=== PATIENT | female | born 1990 | race Hispanic/Latino ===

== ENCOUNTER 2024-05-13 22:58 | Emergency (ER) | payer BC ==
[~2024-05-13] VITALS: Ht 160 cm; Wt 108.0 kg
[2024-05-13 23:00] VITALS: TEMP 98.1
--- NOTE | 2024-05-13 23:19 | ERN ---
ED Note History of Present Illness Stated Complaint: ABDOMINAL PAIN Chief Complaint: Abdominal Pain Time Seen by MD: 23:02 Dictation: Patient is a 33-year-old female morbid obesity who presented to the ER complaining of right groin pain radiating to the right lower quadrant pain, states the pain started earlier this morning around 8:00 a.m. it was associated with nausea. Patient denies fever, chills, no sick contacts. She denies diarrhea. She denies urinary symptoms. Allergies: Coded Allergies: No Known Drug Allergies (Unverified Allergy, Unknown, 05/13/24) Past Medical History Past Medical History: Anemia, Asthma Surgical History: Cholecystectomy, LMP: Mar 13, 2024 Review of System Dictation NEGATIVE EXCEPT PER HPI Constitutional: Negative for fever,chills, and weight loss Eyes: Negative for injury, pain,redness, and discharge ENT: Negative for injury,pain or swelling Cardiovascular: denies chest pain, palpitations, and edema Respiratory: Negative for shortness of breath, cough, and wheezing, Abdomen/GI: Right lower quadrant abdominal pain and nausea. Back: Right lower back pain. : Negative for injury, bleeding and discharge MS/Extremity: Negative for injury and deformity Skin: Negative for rash, and discoloration Neuro: Negative for headache, weakness, numbness, tingling, and seizure Psych: Negative for suicide ideation, homicidal ideation, and hallucinations Initial Vital Sign VS Vital Signs Date Time Temp Pulse Resp B/P (MAP) Pulse Ox O2 Delivery O2 Flow Rate FiO2 05/13/24 23:00 98.1 82 18 126/67 99 Room Air 0 05/14/24 00:06 21 Physical Exam Dictation General: awake, alert, NAD Head/Face: Normocephalic, atraumatic Eyes: PERRL, EOMI, vision at baseline ENT: oral cavity clear, TMs clear, no signs of infection Neck: Trachea midline, supple, no nuchal rigidity Cardiovascular: RRR, normal S1/S2, No MRGs, no JVD Respiratory: CTAB, no respiratory distress, No rales or wheezes Abdomen: Soft , no tender Skin: Warm, dry, normal turgor, no rash MS/Extremity: Pulses equal, no cyanosis, neurovascular intact, FROM Neuro: COAx4, GCS 15, strength 5/5, CN 2-12 intact, normal cerebellar exam, normal gait, Psych: Normal behavior, mood, and affect normal Results (Laboratory/Radiology) Laboratory/Radiology Laboratory Tests Test 05/13/24 23:09 White Blood Count 10.6 K/uL (4.8-10.8) Red Blood Count 4.71 MIL/uL (4.00-5.50) Hemoglobin 10.8 g/dL (12.0-16.0) L Hematocrit 34.5 % (36-48) L Mean Corpuscular Volume 73.2 fL (79-99) L Mean Corpuscular Hemoglobin 22.9 pg (27.0-33.0) L Mean Corpuscular Hemoglobin Concent 31.3 g/dL (32.0-36.0) L Red Cell Distribution Width 17.1 % (11.0-15.5) H Platelet Count 395 K/uL (130-400) Mean Platelet Volume 8.8 fL (7.5-10.5) Immature Granulocyte % (Auto) 0.4 % (0-1) Neutrophils (%) (Auto) 65.0 % (40.0-77.0) Lymphocytes (%) (Auto) 25.7 % (21.0-51.0) Monocytes (%) (Auto) 6.4 % (3.0-13.0) Eosinophils (%) (Auto) 1.9 % (0.0-8.0) Basophils (%) (Auto) 0.6 % (0.0-5.0) Neutrophils # (Auto) 6.9 K/uL (1.8-7.7) Lymphocytes # (Auto) 2.7 K/uL (1.0-4.8) Monocytes # (Auto) 0.7 K/uL (0.1-1.0) Eosinophils # (Auto) 0.20 K/uL (0.00-0.70) Basophils # (Auto) 0.06 K/uL (0.00-0.20) Absolute Immature Granulocyte (auto 0.04 K/uL (0-1) Nucleated Red Blood Cells 0.0 % (0.0-0.19) Red Blood Cell Morphology See comments Urine Color LIGHT-YELLOW (YELLOW) Urine Appearance CLEAR (CLEAR) Urine pH 5.5 (5.0-8.0) Urine Specific Mcallister 1.016 (1.001-1.031) Urine Protein NEGATIVE mg/dL (NEGATIVE) Urine Glucose (UA) NEGATIVE mg/dL (NEGATIVE) Urine Ketones NEGATIVE mg/dL (NEGATIVE) Urine Occult Blood MODERATE (NEGATIVE) H Urine Nitrate NEGATIVE (NEGATIVE) Urine Bilirubin NEGATIVE mg/dL (NEGATIVE) Urine Urobilinogen 0.2 mg/dL (0.2-1.0) Urine Leukocyte Esterase NEGATIVE Eusebio/uL Urine RBC 2-5 /HPF (0-1) H Urine WBC 2-5 /HPF (0-1) H Urine Squamous Epithelial Cells Rare /HPF (0-2) Urine Bacteria Rare /HPF (None Seen) Urine HCG, Qualitative NEGATIVE (NEGATIVE) Sodium Level 142 mmol/L (136-145) Potassium Level 3.6 mmol/L (3.5-5.1) Chloride Level 106 mmol/L (101-111) Carbon Dioxide Level 29 mmol/L (21-32) Blood Urea Nitrogen 9 mg/dL (7-18) Creatinine 0.8 mg/dL (0.5-1.0) Glomerular Filtration Rate Calc 101 mL/min (>90) Random Glucose 95 mg/dL (70-105) Total Calcium 8.8 mg/dL (8.5-10.1) ED Course ED Course Orders Procedure Category Date Status Time Basic Metabolic Panel LAB 05/13/24 Complete 23:13 Cbc With Differential LAB 05/13/24 Complete 23:13 ,Urine Test LAB 05/13/24 Complete 23:13 Urinalysis Profile LAB 05/13/24 Complete 23:13 Ct Abdomen/Pelvis W/O CT 05/14/24 Resulted Contrast 00:09 Morphine 2mg Syg PHA 05/14/24 Complete (Morphine 2mg Syg) 00:30 Current Medications Medications (Trade) Dose Ordered Sig/Jagdish Route PRN Reason Start Time Stop Time Status Last Admin Dose Admin Morphine Sulfate (morPHINE 2MG SYG) 2 mg ONCE ONCE IVP 05/14/24 00:30 05/14/24 00:31 DC 05/14/24 00:25 Vital Signs Date Time Temp Pulse Resp B/P (MAP) Pulse Ox O2 Delivery O2 Flow Rate FiO2 05/14/24 00:06 74 18 128/76 100 Room Air* 0 21 05/13/24 23:00 98.1 82 18 126/67 99 Room Air 0 Medical Decision Making MDM 33-year-old female with right lower back pain, right groin pain, right lower quadrant abdominal pain associated with nausea. Ordered CBC, BNP, UA, test Possible patient's symptoms related to UTI/pyelonephritis,/appendicitis. We started with laboratory workup and possible CT of abdomen/pelvis to be ordered also. Laboratory workup was unremarkable UA was positive for blood I will order a CT of abdomen/pelvis in order to rule out early appendicitis, nephrolithiasis. FINDINGS: No pleural effusion is seen bilaterally. There is no evidence of parenchymal disease or pulmonary nodule of the visualized lower lungs. Degenerative changes of the thoracolumbar spine are present. The heart is not enlarged. Liver is enlarged with fatty changes measuring 18 cm. Gallbladder has been removed. Liver, spleen, adrenal glands and pancreas are unremarkable. There is no evidence of hydronephrosis bilaterally. No evidence of renal stone is seen. Fecal material is seen in the colon. There are normal size retroperitoneal and mesenteric lymph nodes. No ascites is seen. No CT evidence of acute appendicitis is seen. Clinical correlation is recommended. Pelvic sidewalls are symmetric bilaterally. Bladder is poorly distended. IMPRESSION: 1. No CT evidence of acute appendicitis is seen. Fecal material in the colon. No ascites. No hydronephrosis. According to results patient is negative for nephrolithiasis, appendicitis. Patient will be discharged home with a recommended to follow up with her primary care physician. Pain medical history p.r.n. he will be provided. DX & DISP Disposition: Discharge Departure Impression: Primary Impression: Abdominal pain Additional Impression: Muscle ache Condition: Stable Scripts Ibuprofen (Ibuprofen) 400 Mg Tablet 1 TAB PO Q6HPRN PRN for pain or fever for 5 Days, #20 TAB 0 Refills Prov: ODETTE ALLRED MD 05/14/24 Additional Instructions: RETURN TO ER FOR ANY ACUTE OR WORSENING SYMPTOMS. FOLLOW-UP IN 1-2 DAYS WITH PRIMARY PROVIDER FOR RECHECK OF TODAY'S SYMPTOMS. ODETTE ALLRED MD May 13, 2024 23:19
[2024-05-13 23:22] LABS: BASOPHILS # (AUTO) 0.06 K/uL (0.00-0.20); BASOPHILS % (AUTO) 0.6 % (0.0-5.0); EOSINOPHILS % (AUTO) 1.9 % (0.0-8.0); HEMATOCRIT 34.5 % (36-48); IMMATURE GRANULOCYTE ABSOLUTE 0.04 K/uL (0-1); LYMPHOCYTES # (AUTO) 2.7 K/uL (1.0-4.8); LYMPHOCYTES % (AUTO) 25.7 % (21.0-51.0); MEAN CORPUSCULAR HEMOGLOBIN 22.9 pg (27.0-33.0); MEAN CORPUSCULAR HGB CONC 31.3 g/dL (32.0-36.0); MEAN CORPUSCULAR VOLUME 73.2 fL (79-99); MONOCYTES # (AUTO) 0.7 K/uL (0.1-1.0); MONOCYTES % (AUTO) 6.4 % (3.0-13.0); NEUTROPHILS # (AUTO) 6.9 K/uL (1.8-7.7); PLATELET COUNT (AUTO) 395 K/uL (130-400); RED BLOOD CELL COUNT(AUTO) 4.71 MIL/uL (4.00-5.50); RED CELL DISTRIBUTION WIDTH 17.1 % (11.0-15.5); WHITE BLOOD COUNT (AUTO) 10.6 K/uL (4.8-10.8)
[2024-05-13 23:37] LABS: APPEARANCE,URINE CLEAR (CLEAR); BILIRUBIN,URINE NEGATIVE (NEGATIVE); COLOR,URINE LIGHT-YELLOW (YELLOW); GLUCOSE, URINE (UA) NEGATIVE (NEGATIVE); KETONES,URINE NEGATIVE (NEGATIVE); LEUKOCYTE ESTERASE ,URINE NEGATIVE Leu/uL (NEGATIVE); NITRATE,URINE NEGATIVE (NEGATIVE); OCCULT BLOOD,URINE MODERATE (NEGATIVE); PH,URINE 5.5 (5.0-8.0); PROTEIN,URINE NEGATIVE (NEGATIVE); UROBILINOGEN,URINE 0.2 mg/dL (0.2-1.0)
[2024-05-13 23:38] LABS: CREATININE 0.8 mg/dL (0.5-1.0); POTASSIUM 3.6 mmol/L (3.5-5.1)
[2024-05-13 23:41] LABS: ADD UA MICROSCOPIC YES
[2024-05-13 23:43] LABS: BACTERIA,URINE Rare /HPF (None Seen); MUCUS,URINE Rare LPF (None Seen); SQUAMOUS EPITHELIAL CELL,UR Rare /HPF (0-2)
[2024-05-14] MEDS: morPHINE 2 MG SYG IVP ONE (00:25)
[2024-05-14 01:00] VITALS: BP 109/64; PULSE 92; RESP 18; O2SAT 99
--- NOTE | 2024-05-14 01:01 | HMCIMG ---
CT ABDOMEN/PELVIS W/O CONTRAST HISTORY: Abdominal pain COMPARISON: None TECHNIQUE: Multiple sequential axial images of the abdomen and pelvis were obtained from the dome of the diaphragm through symphysis pubis. Patient was not given contrast through intravenous route. Oral contrast was not given. FINDINGS: No pleural effusion is seen bilaterally. There is no evidence of parenchymal disease or pulmonary nodule of the visualized lower lungs. Degenerative changes of the thoracolumbar spine are present. The heart is not enlarged. Liver is enlarged with fatty changes measuring 18 cm. Gallbladder has been removed. Liver, spleen, adrenal glands and pancreas are unremarkable. There is no evidence of hydronephrosis bilaterally. No evidence of renal stone is seen. Fecal material is seen in the colon. There are normal size retroperitoneal and mesenteric lymph nodes. No ascites is seen. No CT evidence of acute appendicitis is seen. Clinical correlation is recommended. Pelvic sidewalls are symmetric bilaterally. Bladder is poorly distended. IMPRESSION: 1. No CT evidence of acute appendicitis is seen. Fecal material in the colon. No ascites. No hydronephrosis. CT was performed with one or more following dose reduction techniques: automated exposure control, adjustment of the mA and kv according to patient's size, or use of a iterative reconstruction technique.
[2024-05-14] MEDS ORDERED: IBUP-2076 PO (01:33)
[2024-05-16] MEDS ORDERED: DICY20TA2 PO (18:35)
== END 2024-05-14 01:46 | disposition home or self-care (01) ==
LOC: EDH 22:58
DX: R10.31 Right lower quadrant pain (principal); J45.909 Unspecified asthma, uncomplicated; Z90.49 Acquired absence of other specified parts of digestive tract
CPT/HCPCS: 99284; 80048; 85025; 81001; 81025; 36415; 74176; 96374; J2270

== ENCOUNTER 2024-08-10 11:12 | Emergency (ER) | payer BC, MEDICAID ==
[~2024-08-10] VITALS: Ht 160 cm; Wt 111.6 kg
[~2024-08-10 11:12] MED LIST: DICY20TA2 PO; IBUP-2076 PO
--- NOTE | 2024-08-10 12:15 | ERN ---
ED Note History of Present Illness Stated Complaint: FEVER, SORE THROAT Chief Complaint: Sore Throat Time Seen by MD: 11:15 Dictation: 33-year-old female presents to the ED for evaluation of sore throat onset three days ago. Patient reports fever and SOB, but denies any chest pain or other associated symptoms at this time. Patient states she wanted to get checked up because last year around this time she was diagnosed with pneumonia. Allergies: Coded Allergies: No Known Drug Allergies (Unverified Allergy, Unknown, 05/13/24) Home Meds Active Scripts Dicyclomine HCl (Bentyl) 20 Mg Tab, 20 MG PO Q6HPRN PRN for ABDOMINAL PAIN, #20 TAB Prov:NELI MA NP 05/16/24 Ibuprofen (Ibuprofen) 400 Mg Tablet, 1 TAB PO Q6HPRN PRN for pain or fever for 5 Days, #20 TAB 0 Refills Prov:ODETTE ALLRED MD 05/14/24 Past Medical History Past Medical History: No Pertinent History Surgical History: Cholecystectomy History: Not Applicable : 7 Para: 5 Aborts: 2 Review of System Dictation Constitutional: Negative for fever,chills, and weight loss Eyes: Negative for injury, pain,redness, and discharge ENT: Positive for sore throat Negative for injury or swelling Cardiovascular: Negative for chest pain, palpitations, and edema Respiratory: Positive for shortness of breath negative for cough, and wheezing, Abdomen/GI: Negative for abdominal pain, nausea, vomiting, diarrhea, and constipation Back: Negative for injury and pain : Negative for injury, bleeding and discharge MS/Extremity: Negative for injury and deformity Skin: Negative for rash, and discoloration Neuro: Negative for headache, weakness, numbness, tingling, and seizure Psych: Negative for suicide ideation, homicidal ideation, and hallucinations Initial Vital Sign VS Vital Signs Date Time Temp Pulse Resp B/P (MAP) Pulse Ox O2 Delivery O2 Flow Rate FiO2 08/10/24 11:15 97.7 74 18 127/71 97 Room Air 08/10/24 13:13 0 21 Physical Exam Dictation General: awake, alert, NAD Head/Face: Normocephalic, atraumatic Eyes: PERRL, EOMI, vision at baseline ENT: oral cavity clear, TMs clear, no signs of infection Neck: Trachea midline, supple, no nuchal rigidity Cardiovascular: RRR, normal S1/S2, No MRGs, no JVD Respiratory: CTAB, no respiratory distress, No rales or wheezes Abdomen: Soft, non-tender, non-distended, normal bowel sounds, no guarding or rebound. Skin: Warm, dry, normal turgor, no rash MS/Extremity: Pulses equal, no cyanosis, neurovascular intact, FROM Neuro: COAx4, GCS 15, strength 5/5, CN 2-12 intact, normal cerebellar exam, normal gait, Psych: Normal behavior, mood, and affect normal Results (Laboratory/Radiology) Laboratory/Radiology Laboratory Tests Test 08/10/24 13:12 Influenza Type A Antigen Negative For Type A Influenza Type B Antigen Negative For Type B SARS-CoV-2 Antigen (Rapid) PRESUMPTIVE NEGATIVE Group A Streptococcus Rapid negative (NEGATIVE) Labs Reviewed?: Yes ED Course ED Course Orders Procedure Category Date Status Time Covid19 (Sars Antigen LAB 08/10/24 Complete Rapid) 11:38 Influenza Type A & B, LAB 08/10/24 Complete Rapid 11:38 Rapid (Group A Strep) LAB 08/10/24 Complete 11:38 Chest 1vw RAD 08/10/24 Resulted 11:59 Vital Signs Date Time Temp Pulse Resp B/P (MAP) Pulse Ox O2 Delivery O2 Flow Rate FiO2 08/10/24 13:13 98.8 78 20 132/56 98 Room Air* 0 21 08/10/24 11:15 97.7 74 18 127/71 97 Room Air Medical Decision Making MDM MDM: Differential diagnosis: Strep, viral syndrome Risk of complication and/or morbidity or mortality of patient management: None Medications-Per medication reconciliation Need for hospitalization: Patient does not meet criteria for hospitalization. Need for emergency major/minor surgery: No There are no social concerns with this patient. Prescription drug management Prescriptions will include symptomatic care I independently interpreted the test that were performed, results were reviewed by me and considered findings on radiology if ordered. DX & DISP Disposition: AMA Departure Impression: Primary Impression: Left against medical advice Additional Impression: Viral syndrome Condition: Against Medical Advice Referrals: SELF,REFERRAL (PCP) PAUL WALKER MD Aug 10, 2024 12:15
[2024-08-10 13:13] VITALS: BP 132/56; PULSE 78; RESP 20; TEMP 98.8; O2SAT 98
--- NOTE | 2024-08-10 13:13 | NUR ---
ASSUMED CARE AT THIS TIME
--- NOTE | 2024-08-10 13:25 | HMCIMG ---
INDICATION: cough, SOB TECHNIQUE: CHEST 1VW COMPARISON: None FINDINGS AND IMPRESSION: Prominent bilateral interstitial markings which may represent bronchitis or vascular congestion in the proper clinical setting. Cardiac silhouette is within normal limits. Mild degenerative changes of the spine. The visualized upper abdomen appears unremarkable.
[2024-08-10 13:38] LABS: RAPID GROUP A STREP negative (NEGATIVE)
[2024-08-10 13:43] LABS: INFLUENZA TYPE A Negative For Type A (NEGATIVE); INFLUENZA TYPE B Negative For Type B (NEGATIVE)
--- NOTE | 2024-08-10 14:15 | NUR ---
PATIENT REQUEST TO LEAVE AMA AT THIS TIME. PATIENT IS ALERT AND ORIENTED TO PERSON, PLACE, TIME, AND EVENT. PATIENT REPORTS THAT SHE UNDERSTANDS HER CONDITION AND THE RISK ASSOCIATED WITH LEAVING AMA, INCLUDING WITH BUT NOT LIMITED TO PERAMANENT DISABILITY OR AND HAD THE OPPORTUNITY TO ASK QUESTIONS ABOUT THE MEDICAL CONDITION. THE PATIENT HAS BEEN INFORMED TO SEEK MEDICAL SERVICES IN EVENT OF AN EMERGENCY. PATIENT VERBALIZED UNDERSTANDING OF ABOVE STATEMENTS. PATIENT LEFT BEFORE AMA FORM COULD BE SIGNED.
[2024-08-10 14:20] LABS: COVID19 (SARS ANTIGEN RAPID) PRESUMPTIVE NEGATIVE (NEGATIVE)
== END 2024-08-10 14:20 | disposition left against medical advice (07) ==
LOC: EDH 11:12
DX: B34.9 Viral infection, unspecified (principal); Z20.822 Contact with and (suspected) exposure to COVID-19; Z79.899 Other long term (current) drug therapy; Z90.49 Acquired absence of other specified parts of digestive tract
CPT/HCPCS: 71045; 87426; 87804; 87880; 99283

== ENCOUNTER 2024-10-21 01:12 | Emergency (ER) | payer BC, MEDICAID ==
[~2024-10-21] VITALS: Ht 160 cm; Wt 117.9 kg
[2024-10-21] MEDS: LACTATED RINGERS 1000ML IV STA (01:36)
[2024-10-21 01:41] LABS: BASOPHILS # (AUTO) 0.05 K/uL (0.00-0.20); BASOPHILS % (AUTO) 0.6 % (0.0-5.0); EOSINOPHILS # (AUTO) 0.22 K/uL (0.00-0.70); EOSINOPHILS % (AUTO) 2.5 % (0.0-8.0); HEMATOCRIT 36.5 % (36-48); IMMATURE GRANULOCYTE ABSOLUTE 0.05 K/uL (0-1); LYMPHOCYTES # (AUTO) 2.6 K/uL (1.0-4.8); MEAN CORPUSCULAR HEMOGLOBIN 25.7 pg (27.0-33.0); MEAN CORPUSCULAR HGB CONC 31.5 g/dL (32.0-36.0); MEAN CORPUSCULAR VOLUME 81.5 fL (79-99); MONOCYTES # (AUTO) 0.6 K/uL (0.1-1.0); MONOCYTES % (AUTO) 6.6 % (3.0-13.0); NEUTROPHILS # (AUTO) 5.3 K/uL (1.8-7.7); NEUTROPHILS % (AUTO) 59.7 % (40.0-77.0); PLATELET COUNT (AUTO) 341 K/uL (130-400); RED BLOOD CELL COUNT(AUTO) 4.48 MIL/uL (4.00-5.50); RED CELL DISTRIBUTION WIDTH 15.1 % (11.0-15.5); WHITE BLOOD COUNT (AUTO) 8.8 K/uL (4.8-10.8)
[2024-10-21 01:48] LABS: CREATININE 0.6 mg/dL (0.5-1.0); POTASSIUM 3.8 mmol/L (3.5-5.1)
[2024-10-21 01:56] LABS: HCG,QUALITATIVE URINE NEGATIVE (NEGATIVE)
[2024-10-21 02:03] LABS: APPEARANCE,URINE TURBID (CLEAR); BILIRUBIN,URINE NEGATIVE (NEGATIVE); COLOR,URINE RED (YELLOW); GLUCOSE, URINE (UA) NEGATIVE (NEGATIVE); KETONES,URINE 5 mg/dL (NEGATIVE); LEUKOCYTE ESTERASE ,URINE 75 Leu/uL (NEGATIVE); MUCUS,URINE RARE LPF (None Seen); NITRATE,URINE NEGATIVE (NEGATIVE); OCCULT BLOOD,URINE LARGE (NEGATIVE); PH,URINE 5.5 (5.0-8.0); PROTEIN,URINE 50 mg/dL (NEGATIVE); RBC,URINE TNTC /HPF (0-1); SQUAMOUS EPITHELIAL CELL,UR FEW /HPF (0-2); UROBILINOGEN,URINE 0.2 mg/dL (0.2-1.0)
--- NOTE | 2024-10-21 02:16 | ERN ---
General Chief Complaint: Vaginal Bleeding Stated Complaint: C/O VAGINAL BLEEDING; HOME (+) 2 WKS AGO Time Seen by MD: 01:19 History of Present Illness Initial Comments Patient is a 33-year-old female who is six para five all by who comes in because of a very large clot and a large amount of blood in her urine associated with this . Her estimate of is 8-10 weeks. She comes in for evaluation because she has never had clots and bleeding with her earlier pregnancies. Allergies: Coded Allergies: No Known Drug Allergies (Unverified Allergy, Unknown, 05/13/24) Home Meds Active Scripts Dicyclomine HCl (Bentyl) 20 Mg Tab, 20 MG PO Q6HPRN PRN for ABDOMINAL PAIN, #20 TAB Prov:NELI MA NP 05/16/24 Ibuprofen (Ibuprofen) 400 Mg Tablet, 1 TAB PO Q6HPRN PRN for pain or fever for 5 Days, #20 TAB 0 Refills Prov:ODETTE ALLRED MD 05/14/24 Past Medical History Past Medical History: No Pertinent History Past Surgical History: Cholecystectomy, Female( History) History: Not Applicable : 7 Para: 5 Aborts: 2 Constitutional: (-) chills, (-) diaphoresis, (-) fever, (-) malaise, (-) weakness, (-) other documentation EENTM: (-) eye pain, (-) blurred vision, (-) tearing, (-) double vision, (-) ear pain, (-) ear discharge, (-) nose pain, (-) nose congestion, (-) throat pain, (-) Throat swelling, (-) mouth pain, (-) tooth pain, (-) mouth swelling, (-) other documentation Respiratory: (-) cough, (-) orthopnea, (-) short of breath, (-) stridor, (-) wheezing, (-) other documentation Gastrointestinal/Abdominal: (-) nausea, (-) vomiting, (-) diarrhea, (-) abdominal pain, (-) abdominal distention, (-) constipation, (-) rectal bleeding, (-) dark stool/melena, (-) other documentation Genitourinary: (+) vaginal bleeding, (+) hematuria Musculoskeletal: (-) Neck pain, (-) back pain, (-) Flank Pain, (-) joint pain, (-) joint swelling, (-) muscle pain, (-) muscle stiffness, (-) gout, (-) other documentation Skin: (-) laceration, (-) contusion, (-) abrasion, (-) abscess, (-) rash, (-) change in color, (-) change in hair, (-) change in nails, (-) diaphoresis, (-) dryness, (-) other documentation Physical Exam General Appearance: (+) no apparent distress Orientation: (+) alert Head/Face Trauma: No Eye: bilateral eye normal inspection, bilateral eye PERRL, bilateral eye EOMI Ear, Nose, Throat: (+) hearing grossly normal, (+) normal ENT inspection Neck: (+) normal inspection, (+) supple Respiratory: (+) chest non-tender, (+) lungs clear, (+) well ventilated Heart: (+) regular, (+) no gallop Vascular: (+) no edema, (+) normal peripheral pulse Gastrointestinal: (+) soft, (+) non-tender Results Laboratory and Microbiology Lab and Micro Result Laboratory Tests Test 10/21/24 01:35 10/21/24 01:40 White Blood Count 8.8 K/uL (4.8-10.8) Red Blood Count 4.48 MIL/uL (4.00-5.50) Hemoglobin 11.5 g/dL (12.0-16.0) L Hematocrit 36.5 % (36-48) Mean Corpuscular Volume 81.5 fL (79-99) Mean Corpuscular Hemoglobin 25.7 pg (27.0-33.0) L Mean Corpuscular Hemoglobin Concent 31.5 g/dL (32.0-36.0) L Red Cell Distribution Width 15.1 % (11.0-15.5) Platelet Count 341 K/uL (130-400) Mean Platelet Volume 9.3 fL (7.5-10.5) Immature Granulocyte % (Auto) 0.6 % (0-1) Neutrophils (%) (Auto) 59.7 % (40.0-77.0) Lymphocytes (%) (Auto) 30.0 % (21.0-51.0) Monocytes (%) (Auto) 6.6 % (3.0-13.0) Eosinophils (%) (Auto) 2.5 % (0.0-8.0) Basophils (%) (Auto) 0.6 % (0.0-5.0) Neutrophils # (Auto) 5.3 K/uL (1.8-7.7) Lymphocytes # (Auto) 2.6 K/uL (1.0-4.8) Monocytes # (Auto) 0.6 K/uL (0.1-1.0) Eosinophils # (Auto) 0.22 K/uL (0.00-0.70) Basophils # (Auto) 0.05 K/uL (0.00-0.20) Absolute Immature Granulocyte (auto 0.05 K/uL (0-1) Nucleated Red Blood Cells 0.0 % (0.0-0.19) Sodium Level 143 mmol/L (136-145) Potassium Level 3.8 mmol/L (3.5-5.1) Chloride Level 108 mmol/L (101-111) Carbon Dioxide Level 25 mmol/L (21-32) Blood Urea Nitrogen 10 mg/dL (7-18) Creatinine 0.6 mg/dL (0.5-1.0) Glomerular Filtration Rate Calc 123 mL/min (>90) Random Glucose 107 mg/dL (70-105) H Total Calcium 8.2 mg/dL (8.5-10.1) L Urine Color RED (YELLOW) Urine Appearance TURBID (CLEAR) Urine pH 5.5 (5.0-8.0) Urine Specific Lynn 1.030 (1.001-1.031) Urine Protein 50 mg/dL (NEGATIVE) H Urine Glucose (UA) NEGATIVE mg/dL (NEGATIVE) Urine Ketones 5 mg/dL (NEGATIVE) H Urine Occult Blood LARGE (NEGATIVE) H Urine Nitrate NEGATIVE (NEGATIVE) Urine Bilirubin NEGATIVE mg/dL (NEGATIVE) Urine Urobilinogen 0.2 mg/dL (0.2-1.0) Urine Leukocyte Esterase 75 Eusebio/uL (NEGATIVE) H Urine RBC TNTC /HPF (0-1) H Urine WBC 11-25 /HPF (0-1) H Urine Squamous Epithelial Cells FEW /HPF (0-2) Urine Bacteria None /HPF (None Seen) Urine HCG, Qualitative NEGATIVE (NEGATIVE) MDM I will order a CBC a UA and ultrasound. Patient is refusing transvaginal ultrasound. I explained the difference between transvaginal versus transabdominal and the advantages of one over the other. Given the young stage of a transvaginal would provide more information. However patient is still would prefer a transabdominal rather than a transvaginal ultrasound. Patient's laboratory studies have come back with a normal CBC a normal chemistry panel and a negative urine test. The urine shows also leukocyte esterase activity and large amounts of blood. The patient has a UTI. I will discharge her on Keflex. ED Course Orders Procedure Category Date Status Time Cbc With Differential LAB 10/21/24 Complete 01:30 Basic Metabolic Panel LAB 10/21/24 Complete 01:30 ,Urine Test LAB 10/21/24 Complete 01:30 Lactated Ringers PHA 10/21/24 Complete 1000ml (Lactated 01:30 Urinalysis LAB 10/21/24 Complete W/Microscopic 01:40 Culture Urine JORDANA 10/21/24 In Process 02:03 Us Ob <14 Weeks US 10/21/24 Taken 01:30 Current Medications Medications (Trade) Dose Ordered Sig/Jagdish Route PRN Reason Start Time Stop Time Status Last Admin Dose Admin Lactated Ringer's (Lactated Ringers 1000ml) 1,000 ml BOLUS STAT IV 10/21/24 01:30 10/21/24 01:33 DC 10/21/24 01:36 Vital Signs Date Time Temp Pulse Resp B/P (MAP) Pulse Ox O2 Delivery O2 Flow Rate FiO2 10/21/24 01:48 98.8 88 18 125/65 98 Room Air* 0 21 10/21/24 01:14 98.2 80 20 131/62 99 Room Air DX & DISP Disposition: Discharge Departure Impression: Primary Impression: Cystitis, acute hemorrhagic Condition: Stable Scripts Cephalexin Monohydrate (Keflex) 500 Mg Cap 500 MG PO QID for 7 Days, #28 CAP Prov: JESSICA DENSON MD 10/21/24 Additional Instructions: You have a urinary tract infection. That is causing the blood in your urine. By ultrasound and our urine test you are not . Please return to the emergency room if you have high fevers decreased blood pressure and increased abdominal pain as if the urinary tract infection was not responding to the antibiotics. Referrals: SELF,REFERRAL (PCP) JESSICA DENSON MD October 21, 2024 02:16
[2024-10-21] MEDS ORDERED: CEPH500B PO (03:10)
[2024-10-21 03:22] VITALS: BP 115/60; PULSE 80; RESP 18; TEMP 98.5; O2SAT 99
--- NOTE | 2024-10-21 09:20 | HMCIMG ---
US OB <14 WEEKS HISTORY: Bleeding COMPARISON: None TECHNIQUE: Obstetrical ultrasound study was performed. FINDINGS: The uterus measures 9.5 x 4 x 5.5 centimeter. Right ovary measures 3.1 x 1.6 x 2.5 centimeter. Left ovary measures 2.8 x 1.7 x 1.6 centimeter. No evidence of intrauterine gestational sac is seen. In a patient with positive test, differential diagnosis would include early versus ectopic versus missed . The hCG correlation is recommended. Endometrial thickness is 11 mm. Patient declined endovaginal study. No fluid is seen in the cul-de-sac. IMPRESSION: 1. No evidence of intrauterine gestational sac is seen. In a patient with positive test, differential diagnosis would include early versus ectopic versus missed . Beta-hCG correlation is recommended.
== END 2024-10-21 03:30 | disposition home or self-care (01) ==
LOC: EDH 01:12
DX: N30.01 Acute cystitis with hematuria (principal); R58 Hemorrhage, not elsewhere classified; Z90.49 Acquired absence of other specified parts of digestive tract
CPT/HCPCS: 99284; 76801; 80048; 85025; 87086; 81001; 81025; 36415; J7120

== ENCOUNTER 2024-11-07 03:55 | Emergency (ER) | payer BC, MEDICAID ==
[~2024-11-07] VITALS: Ht 160 cm; Wt 105.7 kg
[~2024-11-07 03:55] MED LIST changes: +CEPH500B PO
--- NOTE | 2024-11-07 04:32 | ERN ---
General Chief Complaint: Abdominal Pain Stated Complaint: SHARP PAIN IN STOMACH Time Seen by MD: 04:23 History of Present Illness Initial Comments Patient is a 33-year-old obese female who was seen about three weeks ago for large bloody urination. She was diagnosed with a urinary tract infection, esterase activity equals 75, and discharged on Ancef. She comes back with right upper quadrant gripping pain that starts subxiphoid migrates around to her back. Positive nausea and emesis. Negative upper respiratory tract infections. Positive chills negative fevers. Allergies: Coded Allergies: No Known Drug Allergies (Unverified Allergy, Unknown, 05/13/24) Home Meds Active Scripts Cephalexin Monohydrate (Keflex) 500 Mg Cap, 500 MG PO QID for 7 Days, #28 CAP Prov:JESSICA DENSON MD 10/21/24 Dicyclomine HCl (Bentyl) 20 Mg Tab, 20 MG PO Q6HPRN PRN for ABDOMINAL PAIN, #20 TAB Prov:NELI MA NP 05/16/24 Ibuprofen (Ibuprofen) 400 Mg Tablet, 1 TAB PO Q6HPRN PRN for pain or fever for 5 Days, #20 TAB 0 Refills Prov:ODETTE ALLRED MD 05/14/24 Past Medical History Past Medical History: No Pertinent History Medical History Other: obese Past Surgical History: Cholecystectomy, Female( History) History: Not Applicable : 7 Para: 5 Aborts: 2 Constitutional: (+) chills EENTM: (-) eye pain, (-) blurred vision, (-) tearing, (-) double vision, (-) ear pain, (-) ear discharge, (-) nose pain, (-) nose congestion, (-) throat pain, (-) Throat swelling, (-) mouth pain, (-) tooth pain, (-) mouth swelling, (-) other documentation Respiratory: (-) cough, (-) orthopnea, (-) short of breath, (-) stridor, (-) wheezing, (-) other documentation Cardiovascular: (-) chest pain, (-) edema, (-) palpitations, (-) syncope, (-) dyspnea on exertion, (-) other documentation Gastrointestinal/Abdominal: (+) nausea Genitourinary: (+) vaginal discharge, (+) vaginal bleeding, (+) dysuria, (+) frequency, (+) hematuria, (+) pain, (+) other documentation Musculoskeletal: (+) back pain, (+) Flank Pain Skin: (-) laceration, (-) contusion, (-) abrasion, (-) abscess, (-) rash, (-) change in color, (-) change in hair, (-) change in nails, (-) diaphoresis, (-) dryness, (-) other documentation Physical Exam General Appearance: (+) moderate distress General Appearance comment Patient is sitting in bed filling in the registration forearms with tears running down her eyes. Orientation: (+) alert, (+) oriented x 3 Head/Face Trauma: No Eye: bilateral eye normal inspection, bilateral eye PERRL, bilateral eye EOMI Ear, Nose, Throat: (+) hearing grossly normal, (+) normal ENT inspection, (+) moist mucous membraine Neck: (+) normal inspection, (+) supple, (+) full range of motion Respiratory: (+) chest non-tender, (+) lungs clear, (+) well ventilated Heart: (+) regular, (+) no gallop Vascular: (+) no edema, (+) normal peripheral pulse Gastrointestinal: (+) soft, (+) tender Gastrointestinal Comment Patient has maximal tenderness subxiphoid with less tenderness in the right upper quadrant. She does have back tenderness as well but it seems to be musculoskeletal. Results Laboratory and Microbiology Lab and Micro Result Laboratory Tests Test 11/07/24 04:07 11/07/24 04:35 Urine Color LIGHT-YELLOW (YELLOW) Urine Appearance CLEAR (CLEAR) Urine pH 7.0 (5.0-8.0) Urine Specific Tyler 1.018 (1.001-1.031) Urine Protein NEGATIVE mg/dL (NEGATIVE) Urine Glucose (UA) NEGATIVE mg/dL (NEGATIVE) Urine Ketones NEGATIVE mg/dL (NEGATIVE) Urine Occult Blood NEGATIVE (NEGATIVE) Urine Nitrate NEGATIVE (NEGATIVE) Urine Bilirubin NEGATIVE mg/dL (NEGATIVE) Urine Urobilinogen 0.2 mg/dL (0.2-1.0) Urine Leukocyte Esterase NEGATIVE Eusebio/uL Urine HCG, Qualitative NEGATIVE (NEGATIVE) White Blood Count 10.2 K/uL (4.8-10.8) Red Blood Count 4.71 MIL/uL (4.00-5.50) Hemoglobin 11.8 g/dL (12.0-16.0) L Hematocrit 37.2 % (36-48) Mean Corpuscular Volume 79.0 fL (79-99) Mean Corpuscular Hemoglobin 25.1 pg (27.0-33.0) L Mean Corpuscular Hemoglobin Concent 31.7 g/dL (32.0-36.0) L Red Cell Distribution Width 15.7 % (11.0-15.5) H Platelet Count 349 K/uL (130-400) Mean Platelet Volume 8.9 fL (7.5-10.5) Immature Granulocyte % (Auto) 0.5 % (0-1) Neutrophils (%) (Auto) 62.8 % (40.0-77.0) Lymphocytes (%) (Auto) 25.3 % (21.0-51.0) Monocytes (%) (Auto) 7.3 % (3.0-13.0) Eosinophils (%) (Auto) 3.5 % (0.0-8.0) Basophils (%) (Auto) 0.6 % (0.0-5.0) Neutrophils # (Auto) 6.4 K/uL (1.8-7.7) Lymphocytes # (Auto) 2.6 K/uL (1.0-4.8) Monocytes # (Auto) 0.7 K/uL (0.1-1.0) Eosinophils # (Auto) 0.36 K/uL (0.00-0.70) Basophils # (Auto) 0.06 K/uL (0.00-0.20) Absolute Immature Granulocyte (auto 0.05 K/uL (0-1) Nucleated Red Blood Cells 0.0 % (0.0-0.19) Sodium Level 137 mmol/L (136-145) Potassium Level 4.2 mmol/L (3.5-5.1) Chloride Level 103 mmol/L (101-111) Carbon Dioxide Level 28 mmol/L (21-32) Blood Urea Nitrogen 13 mg/dL (7-18) Creatinine 0.6 mg/dL (0.5-1.0) Glomerular Filtration Rate Calc 123 mL/min (>90) Random Glucose 114 mg/dL (70-105) H Total Calcium 8.9 mg/dL (8.5-10.1) Triglycerides Level 87 mg/dL (30-200) Lipase 28 U/L (16-77) MDM Before I order a CT scan I will give the patient some fluid pain medicine anti nausea medicine muscle relaxant and a GI cocktail. I will also get standard labs and a urine and urine analysis. MDM: Differential diagnosis: Esophageal spasm, esophagitis, gastroesophageal reflux, hiatal hernia with obstruction, biliary colic Rationale: Tests considered and ordered secondary to shared decision making include: Previous outside records reviewed: Old ER visits. Risk of complication and/or morbidity or mortality of patient management: None Medications-Per medication reconciliation Need for hospitalization: Patient does not meet criteria for hospitalization. Need for emergency major/minor surgery: No There are no social concerns with this patient. Prescription drug management Prescriptions will include symptomatic care Patient's prior external medical records from other ER visits were reviewed by me as indicated. Prior testing and results from previous visits were reviewed. Prior tests were taken into account with medical decision making and resource utilization, independent historian/historians were used to obtain complete medical history. I independently interpreted the test that were performed, results were reviewed by me and considered findings on radiology if ordered. Medical management and examination interpretation discussions were had by me with other qualified healthcare professionals as indicated for the patient's care. ED Course Orders Procedure Category Date Status Time Cyclobenzaprine Hcl PHA 11/07/24 Complete (Cyclobenzaprine Hcl 04:30 Ketorolac PHA 11/07/24 Complete Tromethamine 30mg/Ml 04:30 Lactated Ringers PHA 11/07/24 Complete 1000ml (Lactated 04:26 Basic Metabolic Panel LAB 11/07/24 Complete 04:26 Cbc With Differential LAB 11/07/24 Complete 04:26 Urinalysis Profile LAB 11/07/24 Complete 04:26 ,Urine Test LAB 11/07/24 Complete 04:26 Ondansetron 4mg PHA 11/07/24 Complete Tablet (Zofran 4mg 04:30 Lidocaine Hcl 2% PHA 11/07/24 Complete Viscous (Lidocaine Hcl 05:00 Mag/Alum/Simeth 30ml PHA 11/07/24 Complete (Maalox Plus 30ml) 05:00 Dicyclomine Hcl PHA 11/07/24 Complete (Bentyl 10mg/5ml 05:00 Lipase LAB 11/07/24 Complete 04:59 Triglycerides LAB 11/07/24 Complete 04:59 Ct Abdomen/Pelvis CT 11/07/24 Taken W/Wo Contras 05:25 Hydromorphone 1 Mg PHA 11/07/24 Complete Inj (Dilaudid 1mg Inj 06:00 Iohexol (Omnipaque) PHA 11/07/24 Complete 06:21 Current Medications Medications (Trade) Dose Ordered Sig/Jagdish Route PRN Reason Start Time Stop Time Status Last Admin Dose Admin Al Hydroxide/Mg Hydroxide (MAALox PLUS 30ML) 30 ml ONCE ONCE PO 11/07/24 05:00 11/07/24 05:01 DC 11/07/24 04:49 Cyclobenzaprine HCl (Cyclobenzaprine HCl) 10 mg ONCE ONCE PO 11/07/24 04:30 11/07/24 04:31 DC 11/07/24 04:46 Dicyclomine HCl (Bentyl 10mg/5ml Syrup) 10 mg ONCE ONCE PO 11/07/24 05:00 11/07/24 05:01 DC 11/07/24 04:49 Hydromorphone HCl (DiLAUDid 1MG INJ) 1 mg ONCE ONCE IVP 11/07/24 06:00 11/07/24 06:01 DC Iohexol (Omnipaque) 35,000 mg STK-MED ONCE IV 11/07/24 06:21 11/07/24 06:21 DC Ketorolac Tromethamine (toRADol) 30 mg ONCE ONCE IVP 11/07/24 04:30 11/07/24 04:31 DC 11/07/24 04:47 Lactated Ringer's (Lactated Ringers 1000ml) 1,000 ml BOLUS STAT IV 11/07/24 04:26 11/07/24 04:30 DC 11/07/24 04:48 Lidocaine HCl (Lidocaine HCl 2% Viscous) 10 ml ONCE ONCE PO 11/07/24 05:00 11/07/24 05:01 DC 11/07/24 04:49 Ondansetron HCl (zoFRAN 4MG TABLET) 4 mg ONCE ONCE PO 11/07/24 04:30 11/07/24 04:31 DC 11/07/24 04:47 Vital Signs Date Time Temp Pulse Resp B/P (MAP) Pulse Ox O2 Delivery O2 Flow Rate FiO2 11/07/24 06:58 88 16 128/73 98 Room Air* 0 21 11/07/24 05:52 84 14 127/64 95 Room Air* 0 11/07/24 04:19 99.3 110 19 131/84 97 Room Air* 0 21 11/07/24 04:08 99.3 118 17 139/92 92 Room Air 0 11/07/24 04:04 99.3 118 17 92 Room Air* 0 21 7:00 a.m. patient was signed out to me by overnight physician. This is a 33-year-old morbidly obese female 7, comes in with epigastric pain which was very severe. Vital signs reviewed blood pressure 139/92, heart rate 118 initially subsequently came down to 80s. Labs reviewed CBC BNP [address] scan of the abdomen and pelvis-only likely some hiatal hernia noted. Fatty liver. No renal stones. Radiology report is pending at this time 7:[address] scan of the abdomen and pelvis stat read reading-no acute abnormalities noted I updated the patient on the CT scan results and tests so far and she is very comfortable now. I counseled her on GERD precautions including not laying down immediately after eating, avoiding citrus spicy carbonated beverages, not be sitting all the time which could aggravate the hiatal hernia and gentle massage in the epigastric area down words and she verbalized full understanding. We also talked about weight loss dietary changes and exercise all lifestyle modifications. She will follow up with her primary care physician. Problem List Problem Lists: (1) Hiatal hernia with obstruction but no gangrene (2) Morbid obesity (3) Hiatal hernia with GERD without esophagitis DX & DISP Disposition: Discharge Departure Impression: Primary Impression: Hiatal hernia with obstruction but no gangrene Additional Impressions: Hiatal hernia with GERD without esophagitis, Morbid obesity, Viral syndrome Condition: Stable Scripts Pantoprazole Sodium (Protonix) 40 Mg Tablet. 1 TAB PO DAILY for acid reflux symptoms for 15 Days, #15 TAB 0 Refills Prov: ADELE RAYO MD 11/07/24 Additional Instructions: Patient and the caregiver have been informed of all the diagnostic tests and the imaging conducted during the today's visit to the emergency room and has verbalized understanding of the results I have personally reviewed and interpreted all diagnostic exams performed here in the ER today as well as the vital signs documented by the nursing staff. The patient is now being discharged to home and should follow up with the primary care physician or the specialist as directed by the ER staff. Follow-up with primary care provider in 1 to 2 days. Take medications as directed here in the emergency room. Okay to continue home medications unless otherwise discussed during your visit in the emergency room today. Return to y our nearest emergency room if symptoms worsen or if there is no improvement. Call 911 if you need immediate assistance. Take Tylenol or Motrin [id number] as needed and if no contraindications are present. Increase oral hydration. A wound culture or urine culture was ordered here in the emergency room department please follow-up with primary care provider and advise them to get repeat ports from our facility. If you had any Brendon wrap/splints that were applied here, please do not remove them until you see your primary care or specialty. Referrals: SELF,REFERRAL (PCP) JESSICA DENSON MD Nov 07, 2024 04:32 ADELE RAYO MD Nov 07, 2024 07:21
[2024-11-07 04:34] LABS: APPEARANCE,URINE CLEAR (CLEAR); BILIRUBIN,URINE NEGATIVE (NEGATIVE); COLOR,URINE LIGHT-YELLOW (YELLOW); GLUCOSE, URINE (UA) NEGATIVE (NEGATIVE); KETONES,URINE NEGATIVE (NEGATIVE); LEUKOCYTE ESTERASE ,URINE NEGATIVE Leu/uL (NEGATIVE); NITRATE,URINE NEGATIVE (NEGATIVE); OCCULT BLOOD,URINE NEGATIVE (NEGATIVE); PROTEIN,URINE NEGATIVE (NEGATIVE); UROBILINOGEN,URINE 0.2 mg/dL (0.2-1.0)
[2024-11-07 04:36] LABS: HCG,QUALITATIVE URINE NEGATIVE (NEGATIVE)
[2024-11-07] MEDS: CYCLOBENZAPRINE HCL 10 MG TABLET PO ONE (04:46)
[2024-11-07] MEDS: ketOROlac 30MG VIAL (30MG/ML) IVP ONE (04:47)
[2024-11-07] MEDS: ondanSETRON 4MG TABLET PO ONE (04:47)
[2024-11-07] MEDS: LACTATED RINGERS 1000ML IV STA (04:48)
[2024-11-07] MEDS: MAG/ALUM/SIMETH 30 ML UDCUP PO ONE (04:49)
[2024-11-07] MEDS: DICYCLOMINE HCL 10 MG/5 ML ML PO ONE (04:49)
[2024-11-07] MEDS: LIDOCAINE HCL 2% VISCOUS 15 ML UDCUP PO ONE (04:49)
[2024-11-07 04:52] LABS: BASOPHILS # (AUTO) 0.06 K/uL (0.00-0.20); BASOPHILS % (AUTO) 0.6 % (0.0-5.0); EOSINOPHILS # (AUTO) 0.36 K/uL (0.00-0.70); EOSINOPHILS % (AUTO) 3.5 % (0.0-8.0); HEMATOCRIT 37.2 % (36-48); IMMATURE GRANULOCYTE ABSOLUTE 0.05 K/uL (0-1); LYMPHOCYTES # (AUTO) 2.6 K/uL (1.0-4.8); LYMPHOCYTES % (AUTO) 25.3 % (21.0-51.0); MEAN CORPUSCULAR HEMOGLOBIN 25.1 pg (27.0-33.0); MEAN CORPUSCULAR HGB CONC 31.7 g/dL (32.0-36.0); MONOCYTES # (AUTO) 0.7 K/uL (0.1-1.0); MONOCYTES % (AUTO) 7.3 % (3.0-13.0); NEUTROPHILS # (AUTO) 6.4 K/uL (1.8-7.7); NEUTROPHILS % (AUTO) 62.8 % (40.0-77.0); PLATELET COUNT (AUTO) 349 K/uL (130-400); RED BLOOD CELL COUNT(AUTO) 4.71 MIL/uL (4.00-5.50); RED CELL DISTRIBUTION WIDTH 15.7 % (11.0-15.5); WHITE BLOOD COUNT (AUTO) 10.2 K/uL (4.8-10.8)
[2024-11-07 04:52] LABS: ADD UA MICROSCOPIC NO
[2024-11-07 04:53] LABS: CREATININE 0.6 mg/dL (0.5-1.0); POTASSIUM 4.2 mmol/L (3.5-5.1)
[2024-11-07 05:30] LABS: TRIGLYCERIDES 87 mg/dL (30-200)
[2024-11-07] MEDS ORDERED: IOHEXOL 350 MG/ML 100ML INFUS..BTL IV ONE (06:21)
--- NOTE | 2024-11-07 06:59 | NUR ---
REPORT GIVEN TO CECE CARRILLO AT THIS TIME
[2024-11-07] MEDS: hydroMORPHone 1 MG INJ IVP ONE (07:00)
--- NOTE | 2024-11-07 07:23 | NUR ---
UPON SPEAKING W/THE PT, STUDENT NURSE SAIDA WAS INFORMED THAT THE PT STILL HAD SOEM EPIGASTRIC DISCOMFORT AT A 6/10 BUT STATES FEELS MUCH BETTER THAN WHEN SHE FIRST ARRIVED TO THE ED.
[2024-11-07] MEDS ORDERED: PANT40TA PO (07:45)
[2024-11-07 07:53] VITALS: BP 138/73; PULSE 74; RESP 17; TEMP 98.1; O2SAT 97
--- NOTE | 2024-11-07 08:13 | HMCIMG ---
Exam Type: CT ABDOMEN/PELVIS W/WO CONTRAS Clinical Information: abd pain mid-epigastric Comparison: None Contrast: 100 cc's Isovue 370 IV, no complications or adverse reactions CT Dose Index (CTDI): 31.60 mGy Dose Length Product (DLP): 1740.80 total mGy-cm Findings: No evidence of nephro or ureterolithiasis is found. No hydronephrosis or ureteral dilatation is seen. The lung bases are clear. The stomach is unremarkable. It shows no wall thickening. No gross ulceration is seen. It is not overly distended. There are no surrounding inflammatory changes. No wall lesions are identified to suggest cancer. The spleen is unremarkable. It is not enlarged. The pancreas shows normal anatomy. It is not fatty replaced. It shows no lesions. The pancreatic duct is not dilated. The gallbladder is surgically absent. The adrenal glands are unremarkable. There is no enlargement. No lesions are noted. The liver is unremarkable. It shows no focal masses. The appendix is unremarkable. It shows no evidence of inflammation. No appendicolith is seen. The small bowel is unremarkable. There is no evidence of dilatation to suggest obstruction. No evidence of adynamic ileus is seen. There is no small bowel wall thickening to suggest enteritis. The colon is unremarkable. The urinary bladder is unremarkable. There is no wall thickening to suggest tumor or inflammation. There are no intraluminal calculi. There are no diverticula. There is no evidence of chronic bladder outlet obstruction. There is no evidence of urinary bladder distention to suggest urinary retention. The other pelvic structures are unremarkable. The bony and vascular structures are unremarkable for the patient's age. IMPRESSION: NEGATIVE CT SCAN OF THE ABDOMEN AND PELVIS WITH ORAL AND IV CONTRAST. This study was performed using dose reduction techniques to include automated exposure control and/or adjustment of the mA and/or kV according to patient size.
== END 2024-11-07 08:04 | disposition home or self-care (01) ==
LOC: EDH 03:55
DX: K44.0 Diaphragmatic hernia with obstruction, without gangrene (principal); K21.9 Gastro-esophageal reflux disease without esophagitis; E66.01 Morbid (severe) obesity due to excess calories; B34.9 Viral infection, unspecified; Z79.899 Other long term (current) drug therapy; Z90.49 Acquired absence of other specified parts of digestive tract; Z98.890 Other specified postprocedural states
CPT/HCPCS: 99284; 74178; 96374; 96361; 84478; 80048; 83690; 85025; 81003; 81025; 36415; Q0162; J1885; J7120; J1171; Q9967